=== PATIENT | female | born 1985 | race African-American/Black ===

== ENCOUNTER 2016-12-10 19:08 | Emergency (ER) | payer OTHER ==
[~2016-12-10] VITALS: Ht 167.6 cm; Wt 87.4 kg
[2016-12-10 19:16] VITALS: BP 146/100; PULSE 119; RESP 20; TEMP 98.5; O2SAT 99
[2016-12-10] MEDS ORDERED: SODIUM CHLOR 0.9% 1000 ML INJ 1,000 ML IV SCH (20:22)
--- NOTE | 2016-12-10 20:28 | PD ---
HPI Chief Complaint: GI Complaint Time Seen by Provider: 20:03 Travel History International Travel<30 days: No Contact w/Intl Traveler<30days: No Traveled to known affect area: No History of Present Illness HPI The patient is a 31-year-old female that complains of nausea, vomiting and diarrhea for 2 days. She has a history of pancreatitis. She drank alcohol 2 days ago. She states she has been vomiting some blood. She has no local physician, she is visiting from [place]. She denies any fever. She complains of a crampy/burning pain of 10 over 10. PFSH Past Medical History Medical History: Denies Significant Hx Tetanus Vaccination: Unknown Influenza Vaccination: No ?: Not LMP: 12/07/16 Past Surgical History Surgical History: No Previous Surgery Social History Alcohol Use: Yes (SOCIALLY) Tobacco Use: Yes Substance Use: No Allergies-Medications (Allergen,Severity, Reaction): Coded Allergies: No Known Allergies (Unverified , 12/10/16) Reported Meds & Prescriptions Reported Meds & Active Scripts Active No Active Prescriptions or Reported Medications Review of Systems Except as stated in HPI: all other systems reviewed are Neg Physical Exam Narrative GENERAL: The patient is alert, oriented 3 in moderate apparent distress with her diffuse abdominal pain. The blood pressure is 146/100 with a heart rate of 119 but the rest the vital signs are normal. SKIN: Focused skin assessment warm/dry. HEAD: Atraumatic. Normocephalic. EYES: Pupils equal and round. No scleral icterus. No injection or drainage. ENT: No nasal bleeding or discharge. Mucous membranes pink and moist. NECK: Trachea midline. No JVD. CARDIOVASCULAR: Regular rate and rhythm. No murmur appreciated. RESPIRATORY: No accessory muscle use. Clear to auscultation. Breath sounds equal bilaterally. GASTROINTESTINAL: Abdomen soft, with tenderness on all 4 quadrants to direct palpation, nondistended. Hepatic and splenic margins not palpable. No guarding or rebound is present. MUSCULOSKELETAL: No obvious deformities. No clubbing. No cyanosis. No edema. NEUROLOGICAL: Awake and alert. No obvious cranial nerve deficits. Motor grossly within normal limits. Normal speech. PSYCHIATRIC: Appropriate mood and affect; insight and judgment normal. Data Data Last Documented VS Vital Signs Date Time Temp Pulse Resp B/P Pulse Ox O2 Delivery O2 Flow Rate FiO2 12/10/16 22:00 72 18 114/74 97 Room Air 12/10/16 19:16 98.5 Orders Beta Hcg (Quant/Titer) (12/10/16 20:22) Complete Blood Count With Diff (12/10/16 20:22) Comprehensive Metabolic Panel (12/10/16 20:22) Lipase (12/10/16 20:22) Urinalysis - C+S If Indicated (12/10/16 20:22) Iv Access Insert/Monitor (12/10/16 20:22) Ecg Monitoring (12/10/16 20:22) Oximetry (12/10/16 20:22) Morphine Inj (Morphine Inj) (12/10/16 20:30) Ondansetron Inj (Zofran Inj) (12/10/16 20:30) Pantoprazole Inj (Protonix Inj) (12/10/16 20:30) Sodium Chlor 0.9% 1000 Ml Inj (Ns 1000 M (12/10/16 20:22) Sodium Chloride 0.9% Flush (Ns Flush) (12/10/16 20:30) Famotidine Inj (Pepcid Inj) (12/10/16 20:30) Potassium Chloride (Kcl) (12/10/16 21:45) Ct Abd/Pel W/O Iv Contrast (12/10/16 22:02) Urine Culture (12/10/16 21:48) Blood Culture (12/10/16 23:21) Lactic Acid (12/10/16 23:21) Labs Laboratory Tests Test 12/10/16 12/10/16 20:40 21:48 White Blood Count 26.5 TH/MM3 Red Blood Count 6.30 MIL/MM3 Hemoglobin 18.5 GM/DL Hematocrit 54.0 % Mean Corpuscular Volume 85.6 FL Mean Corpuscular Hemoglobin 29.3 PG Mean Corpuscular Hemoglobin 34.2 % Concent Red Cell Distribution Width 11.7 % Platelet Count 442 TH/MM3 Mean Platelet Volume 7.7 FL Neutrophils (%) (Auto) 83.3 % Lymphocytes (%) (Auto) 8.6 % Monocytes (%) (Auto) 5.3 % Eosinophils (%) (Auto) 0.0 % Basophils (%) (Auto) 2.8 % Neutrophils # (Auto) 22.1 TH/MM3 Lymphocytes # (Auto) 2.3 TH/MM3 Monocytes # (Auto) 1.4 TH/MM3 Eosinophils # (Auto) 0.0 TH/MM3 Basophils # (Auto) 0.7 TH/MM3 CBC Comment AUTO DIFF Differential Comment AUTO DIFF CONFIRMED Platelet Estimate NORMAL Platelet Morphology Comment NORMAL Red Cell Morphology Comment NORMAL Sodium Level 134 MEQ/L Potassium Level 2.7 MEQ/L Chloride Level 91 MEQ/L Carbon Dioxide Level 26.4 MEQ/L Anion Gap 17 MEQ/L Blood Urea Nitrogen 24 MG/DL Creatinine 2.00 MG/DL Estimat Glomerular Filtration 35 ML/MIN Rate Random Glucose 153 MG/DL Calcium Level 11.5 MG/DL Total Bilirubin 1.0 MG/DL Aspartate Amino Transf 22 U/L (AST/SGOT) Alanine Aminotransferase 26 U/L (ALT/SGPT) Alkaline Phosphatase 105 U/L Total Protein 9.9 GM/DL Albumin 4.9 GM/DL Lipase 145 U/L Human Chorionic Gonadotropin, LESS THAN 1 Quant MIU/ML Urine Color WANG Urine Turbidity MOD Urine pH 6.5 Urine Specific [place] GREATER THAN 1.035 Urine Protein 300 OR GREATER mg/dL Urine Glucose (UA) NEG mg/dL Urine Ketones 15 mg/dL Urine Occult Blood LARGE Urine Nitrite NEG Urine Bilirubin NEG Urine Leukocyte Esterase NEG Urine RBC 4-9 /hpf Urine WBC 3-5 /hpf Urine Squamous Epithelial 6-8 /hpf Cells Urine Amorphous Sediment MOD Urine Bacteria MOD /hpf Urine Hyaline Casts 25-49 /lpf Urine Mucus FEW /lpf Microscopic Urinalysis Comment CULTURE INDICATED MDM Medical Decision Making Medical Screen Exam Complete: Yes Emergency Medical Condition: Yes Medical Record Reviewed: Yes Interpretation(s) The complete metabolic profile shows potassium of 2.7, anion gap of 17, BUN of 24, creatinine of 2.0, glucose 153 with calcium 11.5 and total protein 9.9. The lipase is normal and the beta-hCG is less than 1. The CBC shows a white count of 26,500 with a hemoglobin of 18.5 and hematocrit of 54. There are 83% neutrophils. The urine shows wang color, moderate turbidity, specific gravity greater than 1.035 with large occult blood and 300 or greater protein and 4-9 red cells with 3-5 white cells and moderate urine bacteria and culture is indicated. Differential Diagnosis Gastritis, pancreatitis, gastroenteritis, dehydration, electrolyte disorder, ulcer pain, colitis, urinary tract infection Narrative Course It is now 11:26 PM. We strongly advised the patient be admitted. The patient states she is leaving for [place] tomorrow and she feels fine now and wants to go home. The elevated white count may be due to urinary infection, dehydration or sepsis. We canceled the lactic acid and blood cultures because the patient is not allowing admission and feels fine now. She will be put on Macrobid because of the positive urine. The patient will also be given a short course of potassium supplement. She is dehydrated as evidenced by her high urine specific gravity, elevated BUN and apparent hemoconcentration with a hemoglobin and hematocrit on the CBC. She also has a tachycardia. Sepsis Criteria SIRS Criteria (2 or more): Heart rate over 90, WBC > 40522, < 4000 or > 10% bands Diagnosis Primary Impression: Pyelonephritis Additional Impressions: Moderate dehydration Hypokalemia Additional Instructions: As we discussed, we strongly wanted to admit you here. Since you are feeling much better and he wanted to go home to [place] you will be discharged. We are discharging you with a urinary antibiotic which is one tablet twice daily for 10 days. Also we will give you a prescription for potassium supplement which he take daily for 1 week. Med/Other Pt SpecificInfo: Prescription(s) given Scripts Potassium Chloride ER (K-Tab)20 Meq Tab20 Meq PO DAILY 7 Days Ref 0 Prov:Yonis Lujan MD 12/10/16 Nitrofurantoin Monohydrate Macrocrystals (Macrobid)100 Mg [id number] Mg PO BID 10 Days Ref 0 Prov:Yonis Lujan MD 12/10/16 Disposition: 01 DISCHARGE HOME Condition: Stable Yonis Lujan MD December 10, 2016 20:28
[2016-12-10] MEDS ORDERED: ONDANSETRON HCL 4 MG/2 ML VIAL IVP ONE (20:30)
[2016-12-10] MEDS ORDERED: MORPHINE SULFATE 4 MG/ML INJ IV PUSH ONE (20:30)
[2016-12-10] MEDS ORDERED: PANTOPRAZOLE SODIUM 40 MG VIAL IVP ONE (20:30)
[2016-12-10] MEDS ORDERED: FAMOTIDINE 20 MG/2 ML VIAL IV PUSH ONE (20:30)
[2016-12-10] MEDS ORDERED: SODIUM CHLORIDE 0.9% FLUSH 10 ML FLUSH IV FLUSH PRN (20:30)
[2016-12-10 20:45] VITALS: BP 115/83; PULSE 75; RESP 16; O2SAT 97
[2016-12-10 20:50] LABS: AUTOMATED NEUTROPHIL # 22.1 TH/MM3 (1.8-7.7); BASOPHIL # 0.7 TH/MM3 (0-0.2); BASOPHIL % 2.8 % (0.0-2.0); LYMPH % 8.6 % (9.0-44.0); LYMPHOCYTE # 2.3 TH/MM3 (1.0-4.8); MEAN CELL VOLUME 85.6 FL (80.0-100.0); MEAN CORPUSCULAR HEMOGLOBIN 29.3 PG (27.0-34.0); MEAN CORPUSCULAR HGB CONC 34.2 % (32.0-36.0); MONO % 5.3 % (0.0-8.0); NEUT % 83.3 % (16.0-70.0); PLATELET COUNT 442 TH/MM3 (150-450); RED CELL DISTRIBUTION WIDTH 11.7 % (11.6-17.2); WHITE BLOOD COUNT 26.5 TH/MM3 (4.0-11.0)
[2016-12-10 21:06] LABS: HEMO FLAGS AUTO DIFF
[2016-12-10 21:37] LABS: ALKALINE PHOSPHATASE 105 U/L (45-117); ALT (GPT) 26 U/L (10-53); ANION GAP 17 MEQ/L (5-15); AST (GOT) 22 U/L (15-37); BETA HCG QUANT LESS THAN 1 MIU/ML (0-5); BICARBONATE 26.4 MEQ/L (21.0-32.0); BLOOD UREA NITROGEN 24 MG/DL (7-18); CHLORIDE 91 MEQ/L (98-107); GLOMERULAR FILTRATION RATE 35 ML/MIN (>89); SODIUM (NA) 134 MEQ/L (136-145)
[2016-12-10 21:41] LABS: POTASSIUM 2.7 MEQ/L (3.5-5.1)
[2016-12-10] MEDS ORDERED: POTASSIUM CHLORIDE 20 MEQ CONTROLLED RELEASE TAB PO ONE ×2 (21:45→23:45)
[2016-12-10 21:47] LABS: PLATELET ESTIMATE SMEAR NORMAL (NORMAL); PLATELET MORPHOLOGY NORMAL (NORMAL); SCAN/DIFF AUTO DIFF CONFIRMED
[2016-12-10 21:57] LABS: BLOOD, URINE LARGE (NEG); GLUCOSE,URINE NEG (NEG); KETONE, URINE 15 mg/dL (NEG); NITRITE,URINE NEG (NEG); PH, URINE 6.5 (5.0-8.5)
[2016-12-10 22:00] VITALS: BP 114/74; PULSE 72; RESP 18; O2SAT 97
[2016-12-10 22:15] LABS: URINE COLOR AMBER (YELLW/STRAW)
[2016-12-10 22:16] LABS: BACTERIA, URINE MOD /hpf; MUCUS URINE FEW /lpf (OCC)
[2016-12-10 22:17] LABS: COMMENT (UR) CULTURE INDICATED; CULTURE IF INDICATED CULTURE INDICATED
--- NOTE | 2016-12-10 22:46 | RADHPO ---
EXAM DATE/TIME: 12/10/2016 22:21 [facility] COMPARISON: No previous studies available for comparison. INDICATIONS : Abdominal pain. Nausea, vomiting and diarrhea. ORAL CONTRAST: No oral contrast ingested. RADIATION DOSE: 17.37 CTDIvol (mGy) MEDICAL HISTORY : Pancreatitis. SURGICAL HISTORY : None. ENCOUNTER: Initial ACUITY: 2 days PAIN SCALE: 10/10 LOCATION: Bilateral lower quadrant upper quadrant TECHNIQUE: Volumetric scanning of the abdomen and pelvis was performed. Using automated exposure control and ad justment of the mA and/or kV according to patient size, radiation dose was kept as low as reasonably achievable to obtain optimal diagnostic quality images. FINDINGS: LOWER LUNGS: The visualized lower lungs are clear. LIVER: Homogeneous density without lesion. There is no dilation of the biliary tree. No calcified gallston es. SPLEEN: Normal size without lesion. PANCREAS: Within normal limits. KIDNEYS: Normal in size and shape. There is no mass, stone, or hydronephrosis. ADRENAL GLANDS: Within normal limits. VASCULAR: There is no aortic aneurysm. BOWEL/MESENTERY: The stomach, small bowel, and colon demonstrate no acute abnormality. There is no free intraperitone al air or fluid. The appendix is normal. ABDOMINAL WALL: Within normal limits. RETROPERITONEUM: There is no lymphadenopathy. BLADDER: No wall thickening or mass. REPRODUCTIVE: Within normal limits. INGUINAL: There is no lymphadenopathy or hernia. MUSCULOSKELETAL: Mild scoliosis of the lumbar spine is noted. CONCLUSION: 1. No acute intra-abdominal process. 2. Mild scoliosis of the lumbar spine. Cm Dow MD on December 10, 2016 at 22:42 Board Certified Radiologist. This report was verified electronically.
[2016-12-10 23:05] VITALS: BP 113/73; PULSE 71; RESP 16; O2SAT 98
[2016-12-10] MEDS ORDERED: POTA1TAB4 PO (23:35)
[2016-12-10] MEDS ORDERED: MACR100C2 PO (23:35)
[2016-12-10] MEDS ORDERED: cefTRIAXone INJ 1,000 MG in SODIUM CHLORIDE 0.9% INJ 100 ML IV ONE (23:45)
[2016-12-11 00:40] VITALS: BP 122/70; TEMP 98.5
== END 2016-12-11 00:50 | disposition home or self-care (01) ==
LOC: PHED 19:08
DX: N12 Tubulo-interstitial nephritis, not specified as acute or chronic (principal); E86.0 Dehydration; E87.6 Hypokalemia; Z72.0 Tobacco use; B96.89 Other specified bacterial agents as the cause of diseases classified elsewhere
CPT/HCPCS: 74176; 80053; 81001; 83690; 84702; 85025; 87086; 96361; 96365; 96375; 99285; C9113; J0696; J2270; J2405; J7030